=== PATIENT | male | born 1940 | race Caucasian/White ===

== ENCOUNTER 2021-07-13 11:34 | Emergency (ER) | payer MEDICARE, BC ==
--- NOTE | 2021-07-13 13:11 | ED ---
General Adult HPI - General Chief complaint: Urogenital Stated complaint: Difficulty urinating Time Seen by Provider: 07/13/21 12:45 Source: patient, RN notes reviewed, old records reviewed Mode of arrival: ambulatory Limitations: no limitations - History of Present Illness Initial comments: This is an 80-year-old male presents emergency Department complaining that he has urinary urgency. Patient states he had some hematuria about a month ago followed up with his doctor was placed on an antibiotic and then eventually follow up with urology. Patient states on July 03 he went and had a cystoscopy and ever since then he's had urinary urgency. Patient states he is not urinating much. Patient states that his abdomen is a little bit more diste nded. Patient denies any fever chills per patient denies any back pain. Patient states is a little pressure in the suprapubic region. Patient denies any more hematuria. Patient states his cystoscopy by the urologist was normal - Related Data Allergies Allergy/AdvReac Type Severity Reaction Status Date / Time No Known Allergies Allergy Verified 07/13/21 12:46 Review of Systems ROS Statement: Those systems with pertinent positive or pertinent negative responses have been documented in the HPI. ROS Other: All systems not noted in ROS Statement are negative. Past Medical History Past Medical History: Hypertension, Prostate Disorder History of Any Multi-Drug Resistant Organisms: None Reported Past Surgical History: No Surgical Hx Reported Past Psychological History: No Psychological Hx Reported Smoking Status: Former smoker Past Alcohol Use History: None Reported Past Drug Use History: None Reported General Exam - General Exam Comments Initial Comments: GENERAL: Patient is well-developed and well-nourished. Patient is nontoxic and well- hydrated and is in mild distress. ENT: Neck is soft and supple. No significant lymphadenopathy is noted. Oropharynx is clear. Moist mucous membranes. Neck has full range of motion without eliciting any pain. EYES: The sclera were anicteric and conjunctiva were pink and moist. Extraocular movements were intact and pupils were equal round and reactive to light. E yelids were unremarkable. PULMONARY: Unlabored respirations. Good breath sounds bilaterally. No audible rales rhonchi or wheezing was noted. CARDIOVASCULAR: There is a regular rate and rhythm without any murmurs gallops or rubs. ABDOMEN: Abdomen is mildly distended and somewhat tender in the suprapubic region. SKIN: Skin is clear with no lesions or rashes and otherwise unremarkable. NEUROLOGIC: Patient is alert and oriented x3. Cranial nerves II through XII are grossly intact. Motor and sensory are also intact. Normal speech, volume and content. Symmetrical smile. MUSCULOSKELETAL: Normal extremities with adequate strength and full range of motion. 1+ bilaterally LYMPHATICS: No significant lymphadenopathy is noted PSYCHIATRIC: Normal psychiatric evaluation. Limitations: no limitations Course Vital Signs 07/13/21 12:44 Temperature 98 F Pulse Rate 86 Respiratory 16 Rate Blood Pressure 124/80 O2 Sat by Pulse 98 Oximetry Medical Decision Making - Medical Decision Making Patient had a bladder scanner done showed over 900 mL of urine in the bladder. A Leon catheter was placed in 1900 mL were drained. Patient's creatinine is 2.12 and no old creatinine is available to compare. I spoke with Dr. Flores he wanted to have the patient follow-up and keep the catheter in place until he follows up. He did not recommend any antibiotics at this time. - Lab Data Result diagrams: 07/13/21 13:24 07/13/21 13:24 Lab Results 07/13/21 07/13/21 07/13/21 Range/Units 13:24 13:24 13:24 WBC 4.9 (3.8-10.6) k/uL RBC 4.63 (4.30-5.90) m/uL Hgb 13.6 (13.0-17.5) gm/dL Hct 41.6 (39.0-53.0) % MCV 89.9 (80.0-100.0) fL MCH 29.3 (25.0-35.0) pg MCHC 32.6 (31.0-37.0) g/dL RDW 13.2 (11.5-15.5) % Plt Count 162 (150-450) k/uL MPV 9.4 Neutrophils % 58 % Lymphocytes % 21 % Monocytes % 17 % Eosinophils % 0 % Basophils % 0 % Neutrophils # 2.8 (1.3-7.7) k/uL Lymphocytes # 1.0 (1.0-4.8) k/uL Monocytes # 0.8 (0-1.0) k/uL Eosinophils # 0.0 (0-0.7) k/uL Basophils # 0.0 (0-0.2) k/uL Sodium 136 L (137-145) mmol/L Potassium 5.1 (3.5-5.1) mmol/L Chloride 104 (98-107) mmol/L Carbon Dioxide 20 L (22-30) mmol/L Anion Gap 12 mmol/L BUN 60 H (9-20) mg/dL Creatinine 2.12 H (0.66-1.25) mg/dL Est GFR (CKD-EPI)AfAm 33 (>60 ml/min/1.73 sqM) Est GFR (CKD-EPI)NonAf 28 (>60 ml/min/1.73 sqM) Glucose 126 H (74-99) mg/dL Calcium 9.0 (8.4-10.2) mg/dL Total Bilirubin 0.7 (0.2-1.3) mg/dL AST 20 (17-59) U/L ALT 13 (4-49) U/L Alkaline Phosphatase 61 (38-126) U/L Total Protein 6.5 (6.3-8.2) g/dL Albumin 3.8 (3.5-5.0) g/dL Urine Color Yellow Urine Appearance Cloudy (Clear) Urine pH 5.0 (5.0-8.0) Ur Specific [place] 1.017 (1.001-1.035) Urine Protein Negative (Negative) Urine Glucose (UA) Negative (Negative) Urine Ketones Negative (Negative) Urine Blood Moderate H (Negative) Urine Nitrite Positive (Negative) Urine Bilirubin Negative (Negative) Urine Urobilinogen <2.0 (<2.0) mg/dL Ur Leukocyte Esterase Large H (Negative) Urine RBC >182 H (0-5) /hpf Urine WBC 36 H (0-5) /hpf Ur Squamous Epith Cells <1 (0-4) /hpf Amorphous Sediment Rare H (None) /hpf Urine Bacteria Rare H (None) /hpf Hyaline Casts 1 (0-2) /lpf Urine Mucus Rare H (None) /hpf Urine Yeast (Budding) Rare H (None) /hpf Disposition Clinical Impression: Urinary retention Disposition: HOME SELF-CARE Instructions (If sedation given, give patient instructions): Urinary Retention in Men (ED), Enlarged Prostate (BPH) (ED) Is patient prescribed a controlled substance at d/c from ED?: No Referrals: Wiliam Harding MD [Primary Care Provider] - 1-2 days Time of Disposition: 14:06
[2021-07-13 13:32] LABS: Basophils % (A) 0 %; Eosinophils % (A) 0 %; HCT 41.6 % (39.0-53.0); HGB 13.6 gm/dL (13.0-17.5); Lymphocytes % (A) 21 %; MCH 29.3 pg (25.0-35.0); MCHC 32.6 g/dL (31.0-37.0); MCV 89.9 fL (80.0-100.0); Mean Platelet Volume 9.4; Monocytes # (A) 0.8 k/uL (0-1.0); Monocytes % (A) 17 %; Neutrophils # (A) 2.8 k/uL (1.3-7.7); Neutrophils % (A) 58 %; Platelet Count 162 k/uL (150-450); RBC 4.63 m/uL (4.30-5.90); RDW 13.2 % (11.5-15.5); WBC 4.9 k/uL (3.8-10.6)
[2021-07-13 13:40] LABS: Amorphous Sediment,Urine Rare /hpf; Appearance,Urine Cloudy (Clear); Bacteria,Urine Rare /hpf; Bilirubin,Urine Negative (Negative); Blood,Urine Moderate (Negative); Budding Yeast,Urine Rare /hpf; Color,Urine Yellow; Glucose,Urine (UA) Negative (Negative); Hyaline Casts,Urine 1 /lpf (0-2); Ketones,Urine Negative (Negative); Leukocyte Esterase,Urine Large (Negative); Mucus,Urine Rare /hpf; Nitrite,Urine Positive (Negative); Protein,Urine Negative (Negative); RBC,Urine >182 /hpf (0-5); Specific Gravity,Urine 1.017 (1.001-1.035); Squamous Epithelial Cell,Urine <1 /hpf (0-4); Urobilinogen,Urine <2.0 mg/dL (<2.0); WBC,Urine 36 /hpf (0-5)
[2021-07-13 13:50] LABS: Albumin 3.8 g/dL (3.5-5.0); Potassium 5.1 mmol/L (3.5-5.1); Total Bilirubin 0.7 mg/dL (0.2-1.3); Total Protein 6.5 g/dL (6.3-8.2)
[2021-07-13 14:05] VITALS: RESP 20
[2021-07-13 22:17] VITALS: BP 118/76; PULSE 85; TEMP 98.2
== END 2021-07-13 15:00 | disposition home or self-care (01) ==
LOC: EC 11:34
DX: R33.9 Retention of urine, unspecified (principal); I10 Essential (primary) hypertension; Z87.891 Personal history of nicotine dependence
CPT/HCPCS: 36415; 51702; 80053; 81001; 85025; 87086; 99283

== ENCOUNTER 2021-07-20 05:20 | Emergency (ER) | payer MEDICARE, BC ==
[2021-07-20 05:36] VITALS: BP 115/79; PULSE 102; RESP 16; TEMP 97
--- NOTE | 2021-07-20 07:00 | ED ---
General Adult HPI - General Chief complaint: Extremity Problem,Nontraumatic Stated complaint: Catheter Issue Time Seen by Provider: 07/20/21 06:00 Source: patient, RN notes reviewed Mode of arrival: ambulatory Limitations: no limitations - History of Present Illness Initial comments: Chavez she is an 80-year-old male that presents to the emergency department complaining of catheter malfunction. notes that they woke up this morning and there was urine outside the catheter bag. She notes she was unsure if it was the catheter or anything else. She notes she did follow-up with urology who stated to leave the Leon in for the time being. Patient was otherwise well- appearing. He denied any frequency or discomfort. He noted that his legs are little bit swollen bilaterally. He notes that he has had decreased activity has been sitting for longer periods of time and usual. He notes no change in diet. He denied chest pain shortness of breath headache nausea vomiting diarrhea constipation fever fatigue chills. - Related Data Allergies Allergy/AdvReac Type Severity Reaction Status Date / Time No Known Allergies Allergy Verified 07/20/21 05:34 Review of Systems ROS Statement: Those systems with pertinent positive or pertinent negative responses have been documented in the HPI. ROS Other: All systems not noted in ROS Statement are negative. Past Medical History Past Medical History: Hypertension, Prostate Disorder History of Any Multi-Drug Resistant Organisms: None Reported Past Surgical History: No Surgical Hx Reported Past Psychological History: No Psychological Hx Reported Smoking Status: Former smoker Past Alcohol Use History: None Reported Past Drug Use History: None Reported General Exam Limitations: no limitations General appearance: alert, in no apparent distress Head exam: Present: atraumatic, normocephalic, normal inspection Eye exam: Present: normal appearance, PERRL, EOMI. Absent: scleral icterus, conjunctival injection, periorbital swelling ENT exam: Present: normal exam, mucous membranes moist Neck exam: Present: normal inspection Respiratory exam: Present: normal lung sounds bilaterally. Absent: respiratory distress, wheezes, rales, rhonchi, stridor Cardiovascular Exam: Present: regular rate, normal rhythm, normal heart sounds. Absent: systolic murmur, diastolic murmur, rubs, gallop, clicks GI/Abdominal exam: Present: soft, normal bowel sounds. Absent: distended, tenderness, guarding, rebound, rigid Extremities exam: Present: normal inspection, full ROM, normal capillary refill. Absent: tenderness, pedal edema, joint swelling, calf tenderness Neurological exam: Present: alert, oriented X3 Psychiatric exam: Present: normal affect, normal mood Skin exam: Present: warm, dry, intact, normal color. Absent: rash Course Vital Signs 07/20/21 05:34 Temperature 97 F L Pulse Rate 102 H Respiratory 16 Rate Blood Pressure 115/79 O2 Sat by Pulse 97 Oximetry Medical Decision Making - Medical Decision Making 80-year-old male with catheter malfunction. Catheter replaced. Patient and were informed that increased swelling bilateral legs is most likely due to recent decrease in activity and longer periods of sitting. Patient is agreeable to discharge home with follow-up to primary care and urology as needed. Case discussed with Dr. Araya. Disposition Clinical Impression: Malfunction of Leon catheter Disposition: HOME SELF-CARE Condition: Stable Instructions (If sedation given, give patient instructions): Leon Catheter Placement and Care (ED) Additional Instructions: Please return to the Emergency Department if symptoms worsen or any other concerns. Follow-up with primary care and urology as needed. Make sure bag is clamp shut to prevent leaks. Is patient prescribed a controlled substance at d/c from ED?: No Referrals: Wiliam Harding MD [Primary Care Provider] - 1-2 days Time of Disposition: 06:59
== END 2021-07-20 07:00 | disposition home or self-care (01) ==
LOC: EC 05:20
DX: T83.091A Other mechanical complication of indwelling urethral catheter, initial encounter (principal); I10 Essential (primary) hypertension; Z87.891 Personal history of nicotine dependence
CPT/HCPCS: 51702; 99283

== ENCOUNTER 2021-11-28 13:02 | Emergency (ER) | payer MEDICARE, BC ==
[2021-11-28 14:58] VITALS: BP 117/78; PULSE 78; RESP 16; TEMP 98
[2021-11-28 17:05] LABS: Appearance,Urine Turbid (Clear); Bacteria,Urine Many /hpf; Bilirubin,Urine Negative (Negative); Blood,Urine Small (Negative); Budding Yeast,Urine Many /hpf; Color,Urine Yellow; Glucose,Urine (UA) Negative (Negative); Ketones,Urine Negative (Negative); Leukocyte Esterase,Urine Large (Negative); Mucus,Urine Many /hpf; Nitrite,Urine Positive (Negative); Protein,Urine 2+ (Negative); RBC,Urine >182 /hpf (0-5); Specific Gravity,Urine 1.017 (1.001-1.035); Squamous Epithelial Cell,Urine 2 /hpf (0-4); Uric Acid Crystals,Urine Occasional /hpf; Urobilinogen,Urine <2.0 mg/dL (<2.0); WBC,Urine >182 /hpf (0-5)
--- NOTE | 2021-11-28 17:09 | ED ---
General Adult HPI - General Chief complaint: Urogenital Stated complaint: Urogenital Time Seen by Provider: 11/28/21 16:48 Source: patient, family Mode of arrival: ambulatory Limitations: no limitations - History of Present Illness Initial comments: Dictation was produced using [employer] dictation software. please excuse any grammatical, word or spelling errors. Chief Complaint: 81-year-old male presents to the emergency department for a blocked Leon catheter History of Present Illness: Is an 81-year-old male presents to emergency with blocked Leon catheter. Patient was seen at the urologist office yesterday. This morning he woke up and patient's Leon catheter did not seem to be working. There was small amounts of urine seen in the bag when typically there is a lot more. Patient complains of suprapubic pressure. States that he has a Leon catheter for bladder contraction issues. The ROS documented in this emergency department record has been reviewed and confirmed by me. Those systems with pertinent positive or negative responses have been documented in the HPI. All other systems are other negative and/or noncontributory. PHYSICAL EXAM: General Impression: Alert and oriented x3, not in acute distress HEENT: Normocephalic atraumatic, extra-ocular movements intact, pupils equal and reactive to light bilaterally, mucous membranes moist. Cardiovascular: Heart regular rate and rhythm Chest: Able to complete full sentences, no retractions, no tachypnea Abdomen: abdomen soft, non-tender, non-distended, no organomegaly Musculoskeletal: Pulses present and equal in all extremities, no peripheral edema Motor: no focal deficits noted Neurological: CN II-XII grossly intact, no focal motor or sensory deficits noted Skin: Intact with no visualized rashes Psych: Normal affect and mood ED course: 81-year-old male presents to the emergency department for blocked Leon catheter. Leon catheter was changed I nurse prior to my initial evaluation. States that he feels much better. There is approximately 500 mL of urine in the Leon catheter bag. The port significant improvement after Leon catheter was changed. Vital signs upon arrival are within acceptable limits. Patient be discharged advised follow-up with urologist. - Related Data Allergies Allergy/AdvReac Type Severity Reaction Status Date / Time No Known Allergies Allergy Verified 07/20/21 05:34 Review of Systems ROS Statement: Those systems with pertinent positive or pertinent negative responses have been documented in the HPI. ROS Other: All systems not noted in ROS Statement are negative. Past Medical History Past Medical History: Hypertension, Prostate Disorder History of Any Multi-Drug Resistant Organisms: None Reported Past Surgical History: No Surgical Hx Reported Additional Past Surgical History / Comment(s): mitral valve replacement Past Psychological History: No Psychological Hx Reported Smoking Status: Former smoker Past Alcohol Use History: None Reported Past Drug Use History: None Reported General Exam Limitations: no limitations Course Vital Signs 11/28/21 14:55 Temperature 98 F Pulse Rate 78 Respiratory 16 Rate Blood Pressure 117/78 O2 Sat by Pulse 96 Oximetry Medical Decision Making - Lab Data Lab Results 11/28/21 Range/Units 16:46 Urine Color Yellow Urine Appearance Turbid (Clear) Urine pH 8.0 (5.0-8.0) Ur Specific [place] 1.017 (1.001-1.035) Urine Protein 2+ H (Negative) Urine Glucose (UA) Negative (Negative) Urine Ketones Negative (Negative) Urine Blood Small H (Negative) Urine Nitrite Positive (Negative) Urine Bilirubin Negative (Negative) Urine Urobilinogen <2.0 (<2.0) mg/dL Ur Leukocyte Esterase Large H (Negative) Urine RBC >182 H (0-5) /hpf Urine WBC >182 H (0-5) /hpf Urine WBC Clumps Many H (None) /hpf Ur Squamous Epith Cells 2 (0-4) /hpf Uric Acid Crystals Occasional H (None) /hpf Urine Bacteria Many H (None) /hpf Urine Mucus Many H (None) /hpf Urine Yeast (Budding) Many H (None) /hpf Disposition Clinical Impression: Malfunction of Leon catheter Disposition: HOME SELF-CARE Condition: Good Instructions (If sedation given, give patient instructions): Leon Catheter Placement and Care (ED) Is patient prescribed a controlled substance at d/c from ED?: No Referrals: Wiliam Harding MD [Primary Care Provider] - 1-2 days
--- NOTE | 2021-11-28 17:40 | ED ---
Medical Decision Making - Medical Decision Making Urinalysis concerning for urinary tract infection patient prescription for antibiotics. - Lab Data Lab Results 11/28/21 Range/Units 16:46 Urine Color Yellow Urine Appearance Turbid (Clear) Urine pH 8.0 (5.0-8.0) Ur Specific [place] 1.017 (1.001-1.035) Urine Protein 2+ H (Negative) Urine Glucose (UA) Negative (Negative) Urine Ketones Negative (Negative) Urine Blood Small H (Negative) Urine Nitrite Positive (Negative) Urine Bilirubin Negative (Negative) Urine Urobilinogen <2.0 (<2.0) mg/dL Ur Leukocyte Esterase Large H (Negative) Urine RBC >182 H (0-5) /hpf Urine WBC >182 H (0-5) /hpf Urine WBC Clumps Many H (None) /hpf Ur Squamous Epith Cells 2 (0-4) /hpf Uric Acid Crystals Occasional H (None) /hpf Urine Bacteria Many H (None) /hpf Urine Mucus Many H (None) /hpf Urine Yeast (Budding) Many H (None) /hpf Disposition Clinical Impression: Malfunction of Leon catheter Disposition: HOME SELF-CARE Condition: Good Instructions (If sedation given, give patient instructions): Leon Catheter Placement and Care (ED) Prescriptions: Cefpodoxime Proxetil [Vantin] 200 mg PO Q12HR #20 tab Is patient prescribed a controlled substance at d/c from ED?: No Referrals: Wiliam Harding MD [Primary Care Provider] - 1-2 days
== END 2021-11-28 17:45 | disposition home or self-care (01) ==
LOC: EC 13:02
DX: T83.091A Other mechanical complication of indwelling urethral catheter, initial encounter (principal); I10 Essential (primary) hypertension; Z87.891 Personal history of nicotine dependence
CPT/HCPCS: 51702; 51798; 81001; 87086; 99284

== ENCOUNTER 2023-06-12 20:00 | Emergency (ER) | payer MEDICARE, BC ==
[2023-06-12 21:06] VITALS: TEMP 97.7
--- NOTE | 2023-06-12 22:04 | ED ---
General Adult HPI - General Chief complaint: Urogenital Stated complaint: blood in urine Time Seen by Provider: 06/12/23 21:19 Source: patient, RN notes reviewed Mode of arrival: ambulatory Limitations: no limitations - History of Present Illness Initial comments: 82-year-old male presents to the emergency department with chief complaint of hematuria since 7:30 PM. He does admit to urinary frequency with increased urge to urinate. 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 He follows with urology at [place]. He also states that recently he has had increased rectal discomfort. Denies fever, chills, nausea, vomiting. - Related Data Previous Rx's Medication Instructions Recorded Cefpodoxime Proxetil [Vantin] 200 mg PO Q12HR #20 tab 11/28/21 Ciprofloxacin HCl 500 mg PO BID #20 tablet 06/12/23 Allergies Allergy/AdvReac Type Severity Reaction Status Date / Time No Known Allergies Allergy Verified 06/12/23 20:43 Review of Systems ROS Statement: Those systems with pertinent positive or pertinent negative responses have been documented in the HPI. ROS Other: All systems not noted in ROS Statement are negative. Past Medical History Past Medical History: Hypertension, Prostate Disorder History of Any Multi-Drug Resistant Organisms: None Reported Past Surgical History: Prostate Surgery Additional Past Surgical History / Comment(s): mitral valve replacement Past Psychological History: No Psychological Hx Reported Smoking Status: Former smoker Past Alcohol Use History: Occasional Past Drug Use History: None Reported General Exam Limitations: no limitations General appearance: alert, in no apparent distress Head exam: Present: atraumatic, normocephalic, normal inspection Eye exam: Present: normal appearance, PERRL, EOMI. Absent: scleral icterus, conjunctival injection, periorbital swelling ENT exam: Present: normal exam, mucous membranes moist Neck exam: Present: normal inspection. Absent: tenderness, meningismus, lymphadenopathy Respiratory exam: Present: normal lung sounds bilaterally. Absent: respiratory distress, wheezes, rales, rhonchi, stridor Cardiovascular Exam: Present: regular rate, normal rhythm, normal heart sounds. Absent: systolic murmur, diastolic murmur, rubs, gallop, clicks GI/Abdominal exam: Present: soft, normal bowel sounds. Absent: distended, tenderness, guarding, rebound, rigid Rectal exam: Present: hemorrhoids, tenderness, other (Surrounding erythema) Course Vital Signs 06/12/23 06/13/23 20:43 00:14 Temperature 97.7 F Pulse Rate 100 114 H Respiratory 18 19 Rate Blood Pressure 149/93 130/93 O2 Sat by Pulse 98 96 Oximetry Medical Decision Making - Medical Decision Making Was pt. sent in by a medical professional or institution (JARETT Garcia, LUSTER APPLICATOR, urgent care, hospital, or long term...) When possible be specific @ -No Did you speak to anyone other than the patient for history (EMS, parent, family, police, friend...)? What history was obtained from this source @ -No Did you review nursing and triage notes (agree or disagree)? Why? @ -I reviewed and agree with nursing and triage notes Were old charts reviewed (outside hosp., previous admission, EMS record, old E KG, old radiological studies, urgent care reports/EKG's, long term records)? Report findings @ -No old charts were reviewed Differential Diagnosis (chest pain, altered mental status, abdominal pain women, abdominal pain men, vaginal bleeding, weakness, fever, dyspnea, syncope, headache, dizziness, GI bleed, back pain, seizure, CVA, palpatations, mental hea lth, musculoskeletal)? @ -Urinary tract infection, gross hematuria, bladder cancer, urinary retention, this list is not all-inclusive EKG interpreted by me (3pts min.). @ -None X-rays interpreted by me (1pt min.). @ -None done CT interpreted by me (1pt min.). @ -None done U/S interpreted by me (1pt. min.). @ -None done What testing was considered but not performed or refused? (CT, X-rays, U/S, labs)? Why? @ -None What meds were considered but not given or refused? Why? @ -None Did you discuss the management of the patient with other professionals (professionals i.e. JARETT Garcia, LUSTER APPLICATOR, lab, RT, psych nurse, social service liaison, emergency department clinician, te acher, general service officer, casework supervisor)? Give summary @ -No Was smoking cessation discussed for >3mins.? @ -No Was critical care preformed (if so, how long)? @ -No Were there social determinants of health that impacted care today? How? (Homelessness, low income, unemployed, alcoholism, drug addiction, transportation, low edu. Level, literacy, decrease access to med. care, assisted, rehab)? @ -No Was there de-escalation of care discussed even if they declined (Discuss DNR or withdrawal of care, Hospice)? DNR status @ -No What co-morbidities impacted this encounter? (DM, HTN, Smoking, COPD, CAD, Cancer, CVA, ARF, Chemo, Hep., AIDS, mental health diagnosis, sleep apnea, morbid obesity)? @ -None Was patient admitted / discharged? Hospital course, mention meds given and rou te, prescriptions, significant lab abnormalities, going to OR and other pertinent info. @ -Discharged. Patient presented to the emergency department with chief complaint of hematuria 3 hours. Patient also admits to urinary frequency. He is on Macrobid prophylactically for recurrent UTIs. Laboratory studies are essentially unremarkable. UA shows large blood, greater than 182 RBCs. Patient will be switched to ciprofloxacin temporarily. He is advised to follow up with his urologist. Patient will also be started on nystatin power for surgery erythema of the anus this fissure present. Advised to utilize sitz bath. Return precautions discussed. Patient is able to discharge. Case discussed with Dr. Deshpande who also evaluated the patient is agreeable with plan Undiagnosed new problem with uncertain prognosis? @ -No Drug Therapy requiring intensive monitoring for toxicity (Heparin, Nitro, Insulin, Cardizem)? @ -No Were any procedures done? @ -No Diagnosis/symptom? @ -Hematuria Acute, or Chronic, or Acute on Chronic? @ -Acute Uncomplicated (without systemic symptoms) or Complicated (systemic symptoms)? @ -uncomplicated Side effects of treatment? @ -No Exacerbation, Progression, or Severe Exacerbation? @ -No Poses a threat to life or bodily function? How? (Chest pain, [place], AL, pneumonia, PE, COPD, DKA, ARF, appy, cholecystitis, CVA, Diverticulitis, Homicidal, Suicidal, threat to staff... and all critical care pts) @ -No - Lab Data Result diagrams: 06/12/23 22:21 06/12/23 22:21 Lab Results 06/12/23 06/12/23 06/12/23 Range/Units 22:21 22:21 22:21 WBC 5.6 (3.8-10.6) k/uL RBC 4.79 (4.30-5.90) m/uL Hgb 13.5 (13.0-17.5) gm/dL Hct 40.2 (39.0-53.0) % MCV 84.0 (80.0-100.0) fL MCH 28.3 (25.0-35.0) pg MCHC 33.6 (31.0-37.0) g/dL RDW 14.8 (11.5-15.5) % Plt Count 175 (150-450) k/uL MPV 8.1 Neutrophils % 62 % Lymphocytes % 23 % Monocytes % 11 % Eosinophils % 0 % Basophils % 0 % Neutrophils # 3.5 (1.3-7.7) k/uL Lymphocytes # 1.3 (1.0-4.8) k/uL Monocytes # 0.6 (0-1.0) k/uL Eosinophils # 0.0 (0-0.7) k/uL Basophils # 0.0 (0-0.2) k/uL Sodium 136 L (137-145) mmol/L Potassium 4.8 (3.5-5.1) mmol/L Chloride 101 (98-107) mmol/L Carbon Dioxide 22 (22-30) mmol/L Anion Gap 13 mmol/L BUN 28 H (9-20) mg/dL Creatinine 0.98 (0.66-1.25) mg/dL Est GFR (CKD-EPI)AfAm 83 (>60 ml/min/1.73 sqM) Est GFR (CKD-EPI)NonAf 72 (>60 ml/min/1.73 sqM) Glucose 129 H (74-99) mg/dL Calcium 9.5 (8.4-10.2) mg/dL Total Bilirubin 0.7 (0.2-1.3) mg/dL AST 22 (17-59) U/L ALT 16 (4-49) U/L Alkaline Phosphatase 71 (38-126) U/L Total Protein 7.1 (6.3-8.2) g/dL Albumin 4.4 (3.5-5.0) g/dL Urine Color Red Urine Appearance Bloody (Clear) Urine RBC >182 H (0-5) /hpf Urine WBC 44 H (0-5) /hpf Disposition Clinical Impression: Hematuria, Rectal pain Disposition: HOME SELF-CARE Condition: Stable Instructions (If sedation given, give patient instructions): Urinary Tract Infection in Men (ED), Hematuria (ED) Additional Instructions: Utilize Sitz baths and powder two to three times daily. Please follow up with your urologist. Return to the emergency department for new or worsening symptoms. Prescriptions: Ciprofloxacin HCl 500 mg PO BID #20 tablet Is patient prescribed a controlled substance at d/c from ED?: No Referrals: Wiliam Harding MD [Primary Care Provider] - 1-2 days Kam Zavala MD [STAFF PHYSICIAN] - 1-2 days
[2023-06-12 22:48] LABS: Appearance,Urine Bloody (Clear); Color,Urine Red
[2023-06-12 22:54] LABS: RBC,Urine >182 /hpf (0-5); WBC,Urine 44 /hpf (0-5)
[2023-06-12 23:01] LABS: ALT 16 U/L (4-49); AST 22 U/L (17-59); African American GFR (CKD) 83 (>60 ml/min/1.73 sqM); Albumin 4.4 g/dL (3.5-5.0); Alkaline Phosphatase 71 U/L (38-126); Anion Gap 13 mmol/L; Blood Urea Nitrogen 28 mg/dL (9-20); Calcium 9.5 mg/dL (8.4-10.2); Carbon Dioxide 22 mmol/L (22-30); Chloride 101 mmol/L (98-107); Glucose 129 mg/dL (74-99); Non-African American GFR(CKD) 72 (>60 ml/min/1.73 sqM); Potassium 4.8 mmol/L (3.5-5.1); Sodium 136 mmol/L (137-145); Total Bilirubin 0.7 mg/dL (0.2-1.3); Total Protein 7.1 g/dL (6.3-8.2)
[2023-06-12 23:02] LABS: Basophils % (A) 0 %; Eosinophils % (A) 0 %; HCT 40.2 % (39.0-53.0); HGB 13.5 gm/dL (13.0-17.5); Lymphocytes # (A) 1.3 k/uL (1.0-4.8); Lymphocytes % (A) 23 %; MCH 28.3 pg (25.0-35.0); MCHC 33.6 g/dL (31.0-37.0); Mean Platelet Volume 8.1; Monocytes # (A) 0.6 k/uL (0-1.0); Monocytes % (A) 11 %; Neutrophils # (A) 3.5 k/uL (1.3-7.7); Neutrophils % (A) 62 %; Platelet Count 175 k/uL (150-450); RBC 4.79 m/uL (4.30-5.90); RDW 14.8 % (11.5-15.5); WBC 5.6 k/uL (3.8-10.6)
[2023-06-12] MEDS ORDERED: CIPROFLOXACIN HCL 500 MG TAB PO STA (23:44)
[2023-06-12] MEDS ORDERED: NYSTATIN 100,000 UNIT/GM POWD 15 GM TOPICAL STA (23:47)
[2023-06-13 00:16] VITALS: BP 130/93; PULSE 114; RESP 19
== END 2023-06-13 00:15 | disposition home or self-care (01) ==
LOC: EC 20:00
DX: K62.89 Other specified diseases of anus and rectum (principal); R31.9 Hematuria, unspecified; I10 Essential (primary) hypertension; Z87.891 Personal history of nicotine dependence
CPT/HCPCS: 36415; 51798; 80053; 81001; 85025; 87077; 87086; 87186; 99284